=== PATIENT | female | born 1940 | race Caucasian/White ===

== ENCOUNTER → 2017-09-18 | Outpatient (CLI) | payer BC | LOC: M.ULTRA 09-17 07:49 | DX: R10.2 Pelvic and perineal pain (principal); N89.8 Other specified noninflammatory disorders of vagina; M25.561 Pain in right knee; M25.461 Effusion, right knee ==

== ENCOUNTER → 2019-03-16 | Outpatient (CLI) | payer BC | LOC: M.RAD 10:31 | DX: R06.02 Shortness of breath (principal) ==

== ENCOUNTER → 2019-09-08 | Outpatient (CLI) | payer BC | LOC: M.RAD 12:10 | DX: J84.89 Other specified interstitial pulmonary diseases (principal); J98.11 Atelectasis; I10 Essential (primary) hypertension ==

== ENCOUNTER → 2019-09-15 | Outpatient (CLI) | payer BC ==
--- NOTE | ~2019-09-15 | PF ---
[address] [address] PULMONARY FUNCTION REPORT Name: ADRIANA HUGHES Room: [facility]#: [id number] Admission: 09/15/19 Attend Phys: Yuliana Wilson MD Discharge: Date of : 36 Report #: [id number] THIS REPORT FOR: //name// CC: Yuliana Wilson DATE OF SERVICE: 09/15/2019 COMPLETE PULMONARY FUNCTION TEST REPORT The ratio is 53% with an FEV1 of 57% and an FVC of 79%. With the use of bronchodilators, there was a significant response both in the FVC and FEV1. The total lung capacity is 99% with an RV of 127%. The DLCO was 72%. The above-mentioned values are consistent with a jncwixgj-ld-gkggan obstructive lung disease with significant response to bronchodilators. There is no evidence of restriction; however, there is evidence of mild air trapping based on the value of the RV. There is a mild reduction in the diffusion lung capacity. By: [id number] Thornton DO /nt
== END ==
LOC: M.PUL 10:16
DX: R06.02 Shortness of breath (principal)